=== PATIENT | female | born 1985 | race Caucasian/White ===

== ENCOUNTER 2018-01-25 10:41 | Emergency (ER) | payer MEDICAID ==
[~2018-01-25] VITALS: Ht 565.3 cm; Wt 85.0 kg
[~2018-01-25 10:41] MED LIST: CLON-371 PO; FAMO20TA44 PO; MIRT15TA PO; OMEP20CA10 PO; ONDA4TAB12 PO; ONDA4TAB6 PO; PANT-47 PO; SUCR1ORA2 PO; ZOLP10TA5 PO
[2018-01-25] MEDS ORDERED: ondansetron/PF 4mg/2ml inj IV ONE (11:40)
[2018-01-25] MEDS ORDERED: normal saline 1000ML IV soln IVB ONE (11:40)
[2018-01-25] MEDS ORDERED: morphine 4 MG/ML inj SYRINge IV PRN (11:40)
[2018-01-25 11:43] LABS: BASOPHILS % (AUTO) 0.1 % (0-1); EOSINOPHILS # (AUTO) 0.1 X10'3 (0-0.9); EOSINOPHILS % (AUTO) 0.6 % (0-6); HEMATOCRIT 39.5 % (35.0-45.0); HEMOGLOBIN 13.2 g/dl (12.0-16.0); LYMPHOCYTES # (AUTO) 0.9 X10'3 (1.1-4.8); LYMPHOCYTES % (AUTO) 7.9 % (21-51); MEAN CORPUSCULAR HEMOGLOBIN 27.7 PG (27.0-31.0); MEAN CORPUSCULAR HGB CONC 33.5 % (33.0-36.5); MEAN CORPUSCULAR VOLUME 82.6 FL (78-98); MEAN PLATELET VOLUME 8.6 FL (7.4-10.4); MONOCYTES # (AUTO) 0.1 X10'3 (0-0.9); MONOCYTES % (AUTO) 1.1 % (2-12); NEUTROPHILS # (AUTO) 9.8 X10'3 (1.8-7.7); NEUTROPHILS % (AUTO) 90.3 % (42-75); PLATELET COUNT 321 X10'3 (140-440); RED BLOOD COUNT 4.78 X10'6 (4.20-5.60); RED CELL DISTRIBUTION WIDTH 13.8 % (11.5-14.5); WHITE BLOOD COUNT 10.8 X10'3 (4.5-11.0)
[2018-01-25 11:45] LABS: ALANINE AMINOTRANSFERASE 28 U/L (12-78); ALBUMIN 3.5 G/DL (3.4-5.0); ALKALINE PHOSPHATASE 90 IU/L (46-116); ANION GAP 9 (8-16); ASPARTATE AMINO TRANSFERASE 18 U/L (10-37); BILIRUBIN,TOTAL 0.1 MG/DL (0.1-1.0); BLOOD UREA NITROGEN 10 MG/DL (7-18); BUN/CREATININE RATIO 11.1 (6.6-38.0); CHLORIDE 104 MMOL/L (99-107); GLUCOSE 133 MG/DL (70-104); LIPASE 125 U/L (73-393); POTASSIUM 4.1 MMOL/L (3.5-5.1); SODIUM 140 MMOL/L (135-145); TOTAL CARBON DIOXIDE 27.2 MMOL/L (24-32); TOTAL PROTEIN 7.1 G/DL (6.4-8.2); eGFR 72 ML/MIN
[2018-01-25 11:46] LABS: CALCIUM 8.8 MG/DL (8.5-10.1)
[2018-01-25 12:57] LABS: CLARITY,URINE CLEAR (Clear); COLOR,URINE STRAW (Yellow); GLUCOSE, URINE NEGATIVE (Neg); KETONES,URINE NEGATIVE (Neg); LEUKOCYTE ESTERASE ,URINE NEGATIVE (Neg); NITRITES, URINE NEGATIVE (Neg); OCCULT BLOOD,URINE NEGATIVE (Neg); PH,URINE 8.5 (4.8-8.0); PROTEIN,URINE NEGATIVE (Neg); UROBILINOGEN,URINE 0.2 E.U/dL (0.2-1.0)
[2018-01-25 13:03] LABS: URINE HCG NEGATIVE (NEG)
[2018-01-25 13:04] LABS: UA COLLECTION TYPE STRAIGHT CATH
[2018-01-25 14:32] VITALS: BP 96/54
== END 2018-01-25 14:34 | disposition home or self-care (01) ==
LOC: ER 10:41
DX: R10.13 Epigastric pain (principal); R11.2 Nausea with vomiting, unspecified; R19.7 Diarrhea, unspecified; K21.9 Gastro-esophageal reflux disease without esophagitis; G89.29 Other chronic pain; Z88.1 Allergy status to other antibiotic agents; Z79.899 Other long term (current) drug therapy
CPT/HCPCS: 36415; 80053; 81003; 81025; 83690; 85025; 96361; 96374; 96375; 99285; A4353; J2270; J2405; J7030

== ENCOUNTER 2020-03-05 05:28 | Day surgery (SDC) | payer MEDICAID ==
[2020-03-01 15:52] LABS: BASOPHILS # (AUTO) 0.1 X10'3 (0-0.2); BASOPHILS % (AUTO) 0.6 % (0-1); EOSINOPHILS # (AUTO) 0.3 X10'3 (0-0.9); EOSINOPHILS % (AUTO) 2.9 % (0-6); LYMPHOCYTES # (AUTO) 2.2 X10'3 (1.1-4.8); LYMPHOCYTES % (AUTO) 18.2 % (21-51); MEAN CORPUSCULAR HEMOGLOBIN 25.5 PG (27.0-31.0); MEAN CORPUSCULAR VOLUME 79.8 FL (78-98); MEAN PLATELET VOLUME 8.5 FL (7.4-10.4); MONOCYTES # (AUTO) 0.8 X10'3 (0-0.9); MONOCYTES % (AUTO) 6.5 % (2-12); NEUTROPHILS # (AUTO) 8.5 X10'3 (1.8-7.7); NEUTROPHILS % (AUTO) 71.8 % (42-75); PRE OP HEMATOCRIT 40.1 % (35.0-45.0); PRE OP HEMOGLOBIN 12.8 g/dL (12.0-16.0); PRE OP PLATELET COUNT 374 X10'3 (140-440); RED BLOOD COUNT 5.03 X10'6 (4.20-5.60)
[2020-03-01 15:53] LABS: CLARITY,URINE SLIGHTLY CLOUDY (Clear); COLOR,URINE STRAW (Yellow); GLUCOSE, URINE NEGATIVE (Neg); KETONES,URINE NEGATIVE (Neg); LEUKOCYTE ESTERASE ,URINE NEGATIVE (Neg); NITRITES, URINE NEGATIVE (Neg); OCCULT BLOOD,URINE SMALL (Neg); PROTEIN,URINE NEGATIVE (Neg); UA COLLECTION TYPE CLN CATCH MIDSTREAM; UROBILINOGEN,URINE 0.2 E.U/dL (0.2-1.0)
[2020-03-01 15:58] LABS: BACTERIA,URINE FEW /HPF (Neg); RBC,URINE 0-2 /HPF (0-2); SQUAMOUS EPITHELIAL CELL,UR FEW /LPF (FEW); WBC,URINE 0-4 /HPF (0-4)
[2020-03-01 16:05] LABS: PRE OP PROTIME 10.5 SECONDS (9.0-12.0)
[2020-03-01 16:07] LABS: ALBUMIN 3.8 G/DL (3.4-5.0); ALKALINE PHOSPHATASE 90 IU/L (46-116); BLOOD UREA NITROGEN 8 MG/DL (7-18); BUN/CREATININE RATIO 7.7 (6.6-38.0); CALCIUM 9.1 MG/DL (8.5-10.1); CHLORIDE 104 MMOL/L (99-107); CREATININE 1.04 MG/DL (0.40-0.90); PRE OP ALT 23 U/L (30-65); PRE OP ANION GAP 7 (8-16); PRE OP AST 13 U/L (10-37); PRE OP BILIRUB, TOTAL 0.1 MG/DL (0.0-1.0); PRE OP GLUCOSE 93 MG/DL (70-104); PRE OP POTASSIUM 3.5 MMOL/L (3.4-5.1); PRE OP SODIUM 138 MMOL/L (135-145); TOTAL CARBON DIOXIDE 27.5 MMOL/L (24-32); TOTAL PROTEIN 7.8 G/DL (6.4-8.2); eGFR 60 ML/MIN
[2020-03-01 16:19] LABS: HCG SERUM QL NEGATIVE
[2020-03-05] VITALS (11 sets, daily range): BP systolic 124–140; BP diastolic 59–100
[~2020-03-05] VITALS: Ht 162.6 cm; Wt 105.6 kg
[~2020-03-05 05:28] MED LIST changes: +CHOL400C2 PO; -CLON-371 PO; -FAMO20TA44 PO; +INDO50CA96 PO; -MIRT15TA PO; -OMEP20CA10 PO; +OMEP20TA23 PO; -ONDA4TAB12 PO; -ONDA4TAB6 PO; +ONDA8TAB13 SL; -PANT-47 PO; -SUCR1ORA2 PO; -ZOLP10TA5 PO; +ringers solution, lacted 1,000 ML IV SCH
[2020-03-05] MEDS ORDERED: famotidine 20mg tablet PO ONE (05:30)
[2020-03-05] MEDS ORDERED: ceFOXitin 2GM-NS 100mL ADDvant 100 ML IV ONE (05:30)
[2020-03-05] MEDS ORDERED: ondansetron/PF 4mg/2ml inj IV ONE (06:40)
[2020-03-05] MEDS ORDERED: BUPIVAcaine/PF 2.5 mg/ml (0.25%) 30ml vial ONE ×2 (06:40→06:59)
[2020-03-05] MEDS ORDERED: ondansetron/PF 4mg/2ml inj ONE (06:42)
[2020-03-05] MEDS ORDERED: scopolamine 1.5mg patch.TD72 TD ONE (07:17)
[2020-03-05] MEDS ORDERED: fentaNYL /PF 50mcg/ml 5ml ampule ONE (07:19)
[2020-03-05] MEDS ORDERED: MIDAZolam 5mg/5ml vial ONE (07:19)
[2020-03-05] MEDS ORDERED: labetalol 20mg/4ml (5mg/ml) syringe IV PRN (07:30)
[2020-03-05] MEDS ORDERED: fentaNYL/PF 50MCG/1 ML 2ML syringe IV PRN ×2 (07:30)
[2020-03-05] MEDS ORDERED: ringers solution, lacted 1,000 ML IV SCH (07:30)
[2020-03-05] MEDS ORDERED: ondansetron/PF 4mg/2ml inj IV PRN (07:30)
[2020-03-05] MEDS ORDERED: hydrALAZINE 20mg/ml inj. IV PRN (07:30)
[2020-03-05] MEDS ORDERED: morphine 4 MG/ML inj SYRINge IV PRN (07:30)
[2020-03-05] MEDS ORDERED: propofol inj 20 ML IV ONE (07:31)
[2020-03-05] MEDS ORDERED: rocuronium 10mg/ml inj IV ONE ×2 (07:31→08:49)
[2020-03-05] MEDS ORDERED: ketorolac trometh. 30mg/ml inj. ONE (09:39)
[2020-03-05] MEDS ORDERED: morphine 10mg/ml inj. ONE (09:40)
--- NOTE | 2020-03-05 09:50 | NUR ---
Received from OR via [facility], accompanied by Anesthesiologist DR MENDENHALL and report given by Anesthesiologist. PT DROWSY, DENIES PAIN, STATES HAS SOME CRAMPING, ABDOMEN W/4 LAP SITES W/BANDAIDS CDI, SHERON PAD IN PLACE, NO DRAINAGE. Addendum: 03/05/20 at 1010 by Gin Jacobson RN Amended: Links added.
[2020-03-05] MEDS: morphine 2 MG/ML inj. syringe IV PRN ×2 (10:41→10:54)
--- NOTE | 2020-03-05 12:53 | NUR ---
PT UP ABLE TO AMBULATE SAFELY, PT DENIES PAIN, STATES CRAMPING HAS IMPROVED, VOIDED X 2, TOLERATING PO FLUIDS. D/C INSTRUCTIONS GIVEN AND GONE OVER W/PT WHO VERBALIZED UNDERSTANDING, PT D/CD TO HOME VIA W/C TO PRIVATE VEHICLE W/O INCIDENT. Addendum: 03/05/20 at 1303 by Gin Jacobson RN Amended: Links added.
[2020-03-06] MEDS ORDERED: ONDA4TAB6 PO (08:32)
== END 2020-03-05 12:10 | disposition home or self-care (01) ==
LOC: PAS 05:28
PROVIDERS: ATTEND Obstetrics & Gynecology
DX: N93.9 Abnormal uterine and vaginal bleeding, unspecified (principal); N94.6 Dysmenorrhea, unspecified; D25.1 Intramural leiomyoma of uterus; N80.0 Endometriosis of uterus; F41.9 Anxiety disorder, unspecified; E66.01 Morbid (severe) obesity due to excess calories; Z68.41 Body mass index [BMI] 40.0-44.9, adult; Z98.890 Other specified postprocedural states; Z88.8 Allergy status to other drugs, medicaments and biological substances; Z88.1 Allergy status to other antibiotic agents; Z79.899 Other long term (current) drug therapy; Z20.828 Contact with and (suspected) exposure to other viral communicable diseases; Z79.01 Long term (current) use of anticoagulants
CPT/HCPCS: 36415; 58571; 80053; 81001; 82948; 84703; 85025; 85610; 85730; 86885; 86900; 86901; 87635; C1758; C9803; J0694; J1885; J2250; J2270; J2405; J2704; J3010; J3490; J7120; S2900; A4618

== ENCOUNTER 2020-03-06 07:36 | Emergency (ER) | payer MEDICAID ==
[~2020-03-06] VITALS: Ht 162.6 cm; Wt 100.0 kg
[~2020-03-06 07:36] MED LIST changes: -ringers solution, lacted 1,000 ML IV SCH
[2020-03-06] MEDS ORDERED: fentaNYL/PF 50MCG/1 ML 2ML syringe ONE (07:48)
[2020-03-06] MEDS ORDERED: normal saline 1000ml 1,000 ML IV ONE (07:50)
[2020-03-06] MEDS ORDERED: normal saline 1000ML IV soln IVB ONE (07:50)
[2020-03-06] MEDS ORDERED: ondansetron/PF 4mg/2ml inj IV ONE (07:50)
[2020-03-06] MEDS ORDERED: LORazepam 2 mg/ml vial IV ONE (07:50)
[2020-03-06] MEDS ORDERED: fentaNYL/PF 50MCG/1 ML 2ML syringe IV ONE ×2 (07:50→08:30)
[2020-03-06 08:04] LABS: BASOPHILS # (AUTO) 0.1 X10'3 (0-0.2); BASOPHILS % (AUTO) 0.4 % (0-1); EOSINOPHILS % (AUTO) 0 % (0-6); HEMOGLOBIN 10.4 g/dl (12.0-16.0); MEAN PLATELET VOLUME 8.5 FL (7.4-10.4)
[2020-03-06 08:05] LABS: HEMATOCRIT 32.8 % (35.0-45.0); LYMPHOCYTES # (AUTO) 2.2 X10'3 (1.1-4.8); MEAN CORPUSCULAR HEMOGLOBIN 25.3 PG (27.0-31.0); MEAN CORPUSCULAR HGB CONC 31.7 g/dL (33.0-36.5); MEAN CORPUSCULAR VOLUME 79.9 FL (78-98); MONOCYTES # (AUTO) 1.2 X10'3 (0-0.9); MONOCYTES % (AUTO) 6.1 % (2-12); NEUTROPHILS # (AUTO) 16.4 X10'3 (1.8-7.7); NEUTROPHILS % (AUTO) 82.5 % (42-75); PLATELET COUNT 451 X10'3 (140-440); RED CELL DISTRIBUTION WIDTH 15.2 % (11.5-14.5); WHITE BLOOD COUNT 19.8 X10'3 (4.5-11.0)
[2020-03-06 08:17] LABS: ALANINE AMINOTRANSFERASE 20 U/L (12-78); ALBUMIN 3.7 G/DL (3.4-5.0); ALBUMIN/GLOBULIN RATIO 0.9 (1.1-1.5); ALKALINE PHOSPHATASE 72 IU/L (46-116); ANION GAP 10 (8-16); ASPARTATE AMINO TRANSFERASE 10 U/L (10-37); BILIRUBIN,TOTAL 0.3 MG/DL (0.1-1.0); BLOOD UREA NITROGEN 12 MG/DL (7-18); BUN/CREATININE RATIO 11.5 (6.6-38.0); CHLORIDE 102 MMOL/L (99-107); CREATININE 1.04 MG/DL (0.40-0.90); GLUCOSE 163 MG/DL (70-104); LIPASE < 50 U/L (73-393); POTASSIUM 3.9 MMOL/L (3.5-5.1); SODIUM 137 MMOL/L (135-145); TOTAL CARBON DIOXIDE 24.9 MMOL/L (24-32); TOTAL PROTEIN 7.6 G/DL (6.4-8.2); eGFR 60 ML/MIN
[2020-03-06] MEDS ORDERED: ONDA4TAB6 PO (08:32)
[2020-03-06 09:19] VITALS: BP 127/71
== END 2020-03-06 09:59 | disposition home or self-care (01) ==
LOC: ER 07:37
DX: R10.84 Generalized abdominal pain (principal); R11.2 Nausea with vomiting, unspecified; K21.9 Gastro-esophageal reflux disease without esophagitis; G89.29 Other chronic pain; F41.9 Anxiety disorder, unspecified; Z90.89 Acquired absence of other organs; Z72.89 Other problems related to lifestyle; Z88.1 Allergy status to other antibiotic agents; Z88.8 Allergy status to other drugs, medicaments and biological substances; Z79.899 Other long term (current) drug therapy
CPT/HCPCS: 80053; 83690; 85025; 96361; 96374; 96375; 96376; 99284; J2060; J2405; J3010; J7030

== ENCOUNTER 2022-09-08 09:57 | Day surgery (SDC) | payer MEDICAID ==
[~2022-09-08] VITALS: Ht 162.6 cm; Wt 240.0 kg
[~2022-09-08 09:57] MED LIST changes: +ONDA4TAB6 PO
[2022-09-08 10:10] VITALS: BP 157/80
[2022-09-08] MEDS ORDERED: ASCO-321 PO (10:13)
[2022-09-08] MEDS ORDERED: LACT1CAP92 PO (10:13)
[2022-09-08] MEDS ORDERED: MIDAZolam 1 MG/ML 5ML VIAL ONE (10:40)
[2022-09-08] MEDS ORDERED: LIDOcaine Viscous 15ml cup ONE (10:40)
[2022-09-08] MEDS ORDERED: fentaNYL/PF 50MCG/1 ML 2ML syringe ONE ×2 (10:40→11:14)
[2022-09-08 11:10] VITALS: BP 116/78
[2022-09-08 11:20] VITALS: BP 122/74
[2022-09-08 11:30] VITALS: BP 115/60
[2022-09-08 11:40] VITALS: BP 117/66
== END 2022-09-08 11:45 | disposition home or self-care (01) ==
LOC: GI LAB 09:57
PROVIDERS: ATTEND Internal Medicine Gastroenterology
DX: Z12.11 Encounter for screening for malignant neoplasm of colon (principal); R11.0 Nausea; K63.5 Polyp of colon; K64.8 Other hemorrhoids; K44.9 Diaphragmatic hernia without obstruction or gangrene; K29.60 Other gastritis without bleeding; K31.7 Polyp of stomach and duodenum; K21.9 Gastro-esophageal reflux disease without esophagitis; Z86.010 Personal history of colon polyps; F12.90 Cannabis use, unspecified, uncomplicated
CPT/HCPCS: 43239; 43251; 45380; 45385; 99152; 99153; C1889; J2250; J3010; J7030; Z7512; A4620

== ENCOUNTER 2023-08-25 08:06 | Emergency (ER) | payer BC, MEDICAID ==
[~2023-08-25] VITALS: Ht 162.6 cm; Wt 99.0 kg
[~2023-08-25 08:06] MED LIST changes: +ASCO-321 PO; -CHOL400C2 PO; -INDO50CA96 PO; +LACT1CAP92 PO; -ONDA4TAB6 PO; -ONDA8TAB13 SL
[2023-08-25] MEDS: ondansetron/PF 4mg/2ml inj IV ONE (08:55)
[2023-08-25] MEDS: morphine 4 MG/ML inj SYRINge IV ONE (08:55)
[2023-08-25] MEDS: normal saline 1000ml 1,000 ML IV ONE (08:56)
[2023-08-25 09:14] VITALS: TEMP 98.4
[2023-08-25] MEDS ORDERED: ketorolac trometh. 30mg/ml inj. IV ONE (09:20)
[2023-08-25] MEDS: LORazepam 2 mg/ml vial IV ONE (09:29)
[2023-08-25] MEDS: ketorolac tromethamine 15mg/ml inj. IV ONE (09:48)
[2023-08-25] MEDS ORDERED: METH-798 PO (10:40)
[2023-08-25] MEDS ORDERED: ONDA8TAB13 PO (10:40)
[2023-08-25] MEDS ORDERED: HYDR-3972 PO (10:40)
[2023-08-25 10:44] VITALS: BP 129/71; PULSE 80; RESP 16; O2SAT 98
== END 2023-08-25 10:47 | disposition home or self-care (01) ==
LOC: ER 08:07
DX: S30.0XXA Contusion of lower back and pelvis, initial encounter (principal); K21.9 Gastro-esophageal reflux disease without esophagitis; Z88.1 Allergy status to other antibiotic agents; Z88.4 Allergy status to anesthetic agent; Z79.899 Other long term (current) drug therapy; W19.XXXA Unspecified fall, initial encounter; Y93.89 Activity, other specified; Y92.89 Other specified places as the place of occurrence of the external cause; Y99.8 Other external cause status
CPT/HCPCS: 72131; 96361; 96374; 96375; 99285; J1885; J2060; J2270; J2405; J7030